=== PATIENT | male | born 1955 | race Caucasian/White ===

== ENCOUNTER 2016-10-16 13:11 | Emergency (ER) | payer BC ==
[2016-10-16] MEDS ORDERED: METHYLPREDNISOLONE PF 125MG/VIAL IM ONE (14:26)
--- NOTE | 2016-10-16 14:31 | Emergency Department Record ---
History of Present Illness - General Chief complaint: Extremity Problem Stated complaint: RIGHT HAND SWELLING BITE Time Seen by Provider: 10/16/16 14:10 Source: Patient Mode of Arrival: Ambulatory Limitations: No limitations - History of Present Illness Initial comments: The patient is here due to R hand swelling and itching. He unfortunately shoved his hand in a work glove at home yesterday and it had a spider nest cacoon in it and it poked him in the web space between his R 4th and 5th fingers dorsally. It was itchy soon after and since the hand has become swollen, mildly erythematous and is still pruritic. Today there is some bruising at the puncture site but the hand is not painful or tender. MD Complaint: Extremity swelling Onset/Timin -: Days(s) Location: Right, Hand History of Same: No Radiation: None Quality: Other Consistency: Constant Improves with: Nothing Worsens with: Nothing Associated Symptoms: Denies other symptoms - Related Data Home Medications Medication Instructions Recorded Confirmed Last Taken Amlodipine Besylate [Norvasc] 10 mg PO DAILY 10/16/16 10/16/16 10/16/16 Atorvastatin Calcium 40 mg PO QHS 10/16/16 10/16/16 10/15/16 Enalapril Maleate [Enalapril 10 mg PO DAILY 10/16/16 10/16/16 10/16/16 Maleate] Previous Rx's Medication Instructions Recorded Prednisone 50 mg PO DAILY #5 tablet 10/16/16 Allergies Allergy/AdvReac Type Severity Reaction Status Date / Time Penicillins Allergy Severe RASH Verified 10/16/16 14:03 Travel Screening - Travel/Exposure Within Last 30 Days Have you traveled within the last 30 days?: No Review of Systems Constitutional: Denies: Chills, Fever Past Medical History - SOCIAL HISTORY Smoking Status: Never smoker Alcohol Use: Occasional Drug Use: None - RESPIRATORY Hx Respiratory Disorders: No - CARDIOVASCULAR Hx Cardio Disorders: Yes Hx Hypertension: Yes Comment:: high cholesterol - NEURO Hx Neuro Disorders: No - GI Hx GI Disorders: No - Hx Genitourinary Disorders: No - ENDOCRINE Hx Endocrine Disorders: No - MUSCULOSKELETAL Hx Musculoskeletal Disorders: No - PSYCH Hx Psych Problems: No - HEMATOLOGY/ONCOLOGY Hx Hematology/Oncology Disorders: Yes Hx Cancer: Yes (skin) Family Medical History Any Significant Family History?: No Physical Exam - General General Appearance: Alert, Oriented x3, Cooperative, No acute distress - Head Head exam: Atraumatic, Normocephalic, Normal inspection - Eye Eye exam: Normal appearance, PERRL - Neck Neck exam: Normal inspection, Full ROM. negative: Tenderness - Respiratory Respiratory exam: Normal lung sounds bilaterally. negative: Respiratory distress - Cardiovascular Cardiovascular Exam: Regular rate, Normal rhythm, Normal heart sounds - GI/Abdominal GI/Abdominal exam: Soft, Normal bowel sounds. negative: Tenderness - Extremities Extremities exam: Full ROM (There is no pain with ROM of the fingers or hand. ) , Normal capillary refill, Other (The hand appears to have a local allergic rxn occuring.). negative: Normal inspection (There is mild edema and erythema to the dorsal R hand but no tenderness or warmth.), Joint swelling, Tenderness Image of Hand: 1 - Bruising and blistering. Course Vital Signs 10/16/16 13:56 Temperature 98.0 F Pulse Rate 66 Respiratory 20 Rate Blood Pressure 151/92 Pulse Ox 97 - Reevaluation(s) Reevaluation #1: The patient is doing well with no changes. He is to ice and elevate his hand today. He is to see his PCP for recheck and to return to the ER if not better. 10/16/16 14:42 Disposition Disposition: Discharge Clinical Impression: Allergic reaction to bee sting Disposition: Home, Self-Care Condition: (1) Good Instructions: General Allergic Reaction (ED) Additional Instructions: Please ice and elevate the hand today. Please take an OTC antihistamine for 3 days and continue the Prednisone tomorrow. Please see your PCP tomorrow for recheck and return to the ER for any persistent symptoms, increased swelling, redness, any pain or fever. Prescriptions: Prednisone 50 mg PO DAILY #5 tablet Forms: Patient Portal Access Time of Disposition: 14:46 Quality - Quality Measures Quality Measures: N/A - Blood Pressure Screening View Details: Yes Blood Pressure Classification: Normal BP Reading Systolic Measurement: 117 Diastolic Measurement: 77 Screening for High Blood Pressure: < Normal BP, F/U Not Required > [G8783] Normal BP Follow-up Interventions: No follow-up required Pre-Hypertensive Follow-up Interventions: Follow-up with rescreen every year.
== END 2016-10-16 14:58 | disposition home or self-care (01) ==
LOC: ER 13:11
DX: T63.441A Toxic effect of venom of bees, accidental (unintentional), initial encounter (principal); M79.89 Other specified soft tissue disorders
CPT/HCPCS: 96372; 99283; J2930

== ENCOUNTER 2018-03-21 20:08 | Emergency (ER) | payer BC ==
--- NOTE | 2018-03-21 20:34 | Emergency Department Record ---
History of Present Illness - General Chief Complaint: Laceration(s) Stated Complaint: LAC LT INDEX Time Seen by Provider: 03/21/18 20:31 Source: Patient Mode of Arrival: Ambulatory Limitations: No limitations - History of Present Illness Initial Commments: 62 yo male presents to ED for evaluation following injury while working with a tablesaw. Patient denies numbness, tingling, or weakness to the finger with flexion or extension. Patient denies other injury on examination, and reports that his bleeding symptoms are well controlled. Patient reports previous hand injuries, has seen Dr. Guy previously on several occasions for repair. Onset/Timin -: Hour(s) Location: Other Extremity Location: Left: Hand Place: Home Context: Accidental Associated Symptoms: None Treatments Prior to Arrival: Bandage Treatment Prior to Arrival Comment:: none - Alisha Coma Scale Eye Response: (4) Open spontaneously Motor Response: (6) Obeys commands Verbal Response: (5) Oriented [place] Total: 15 - Related Data Hx Tetanus Toxoid Vaccination: Yes Year of Tetanus Vaccination: unknown Patient Tetanus UTD (within 5 yrs): No Previous Rx's Medication Instructions Recorded Clindamycin HCl 300 mg PO QID #28 capsule 03/21/18 Allergies Allergy/AdvReac Type Severity Reaction Status Date / Time Penicillins Allergy Severe RASH Verified 03/21/18 20:26 Travel Screening - Travel/Exposure Within Last 30 Days Have you traveled within the last 30 days?: No - Travel/Exposure Within Last Year Have you traveled outside the [place] in the last year?: No - Additonal Travel Details Have you been exposed to anyone with a communicable illness?: No - Travel Symptoms Symptom Screening: None Review of Systems Constitutional: Denies: Chills, Fever, Malaise, Night sweats Eyes: Denies: Eye discharge, Eye pain ENT: Denies: Congestion, Ear pain, Epistaxis Respiratory: Denies: Cough, Dyspnea Cardiovascular: Denies: Chest pain, Dyspnea on exertion Endocrine: Denies: Fatigue, Heat or cold intolerance Gastrointestinal: Denies: Abdominal pain, Nausea, Vomiting Genitourinary: Denies: Incontinence, Retention Musculoskeletal: Denies: Arthralgia, Back pain Skin: Reports: Other (Finger laceration). Denies: Bruising, Change in color Neurological: Denies: Abnormal gait, Confusion, Headache, Seizure Psychiatric: Denies: Anxiety Hematological/Lymphatic: Denies: Anemia, Blood Clots Past Medical History - SOCIAL HISTORY Smoking Status: Never smoker Alcohol Use: Occasional Drug Use: None - RESPIRATORY Hx Respiratory Disorders: No - CARDIOVASCULAR Hx Cardio Disorders: Yes Hx Hypertension: Yes Comment:: high cholesterol - NEURO Hx Neuro Disorders: No - GI Hx GI Disorders: No - Hx Genitourinary Disorders: No - ENDOCRINE Hx Endocrine Disorders: No - MUSCULOSKELETAL Hx Musculoskeletal Disorders: No - PSYCH Hx Psych Problems: No - HEMATOLOGY/ONCOLOGY Hx Hematology/Oncology Disorders: Yes Hx Cancer: Yes (skin) Family Medical History Any Significant Family History?: Yes Hx Heart Disease: Father Physical Exam - General General Appearance: Alert, Oriented x3, Cooperative, Mild distress Limitations: No limitations - Head Head exam: Atraumatic, Normocephalic, Normal inspection Head exam detail: negative: Abrasion, Contusion, Mcintosh's sign, General tenderness, Hematoma, Laceration - Eye Eye exam: Normal appearance. negative: Conjunctival injection, Periorbital swelling, Periorbital tenderness, Scleral icterus - ENT Ear exam: negative: Auricular hematoma, Auricular trauma Nasal Exam: negative: Active bleeding, Discharge, Dried blood, Foreign body Mouth exam: negative: Drooling, Laceration, Muffled voice, Tongue elevation - Neck Neck exam: Normal inspection. negative: Meningismus, Tenderness - Respiratory Respiratory exam: Normal lung sounds bilaterally. negative: Rales, Respiratory distress, Rhonchi, Stridor - Cardiovascular Cardiovascular Exam: Regular rate, Normal rhythm, Normal heart sounds - GI/Abdominal GI/Abdominal exam: Soft. negative: Rebound, Rigid, Tenderness - Rectal Rectal exam: Deferred - exam: Deferred - Extremities Extremities exam: Normal inspection. negative: Pedal edema, Tenderness - Back Back exam: Denies: CVA tenderness (R), CVA tenderness (L) - Neurological Neurological exam: Alert, Normal gait, Oriented X3 - Psychiatric Psychiatric exam: Normal affect, Normal mood - Skin Skin exam: Normal color. negative: Abrasion Type of lesion: negative: abrasion Course Vital Signs 03/21/18 20:11 Temperature 98 F Pulse Rate 88 Respiratory 24 Rate Blood Pressure 134/87 Pulse Ox 96 - Reevaluation(s) Reevaluation #1: 03/21/18 20:46 Left index finger: Comminuted, minimally displaced tuft fracture Case was discussed with Dr. Guy, will place in wet-to-dry dressing, clinamycin, and splint with follow-up in 3-5 days as directed. Patient was updated on all results, appears stable for discharge at this time. Disposition Disposition: Discharge Clinical Impression: Open fracture of tuft of distal phalanx of finger Laceration of index finger Qualifiers: Encounter type: initial encounter Damage to nail status: with damage Foreign body presence: without foreign body Laterality: left Qualified Code(s): S61.311A - Laceration without foreign body of left index finger with damage to nail, initial encounter Disposition: Home, Self-Care Condition: (2) Stable Instructions: Laceration (ED) Additional Instructions: Return to ED if your symptoms worsen or if you have any concerns. Clindamycin as directed. Follow-up with Dr. Guy in 3-5 days as directed. Prescriptions: Clindamycin HCl 300 mg PO QID #28 capsule Referrals: TOYA GUY [MEDICAL DOCTOR] - Forms: Patient Portal Access Time of Disposition: 20:49 Quality - Quality Measures Quality Measures: N/A - Blood Pressure Screening Does Patient Have Any of the Following: No Blood Pressure Classification: Pre-Hypertensive BP Reading Systolic Measurement: 134 Diastolic Measurement: 87 Screening for High Blood Pressure: < Pre-Hypertensive BP, F/U Documented > [ G8950] Pre-Hypertensive Follow-up Interventions: Referral to alternative/primary care provider.
[2018-03-21] MEDS ORDERED: CLINDAMYCIN 150 MG CAP PO ONE (20:49)
[2018-03-21] MEDS ORDERED: Diph,Pert(Acell),Tet Vac 0.5 ML SYR IM ONE (20:52)
--- NOTE | 2018-03-23 12:47 | RADIOLOGY REPORT ---
EXAM: LEFT INDEX FINGER HISTORY: TABLE SAW INJURY, NICKED LEFT INDEX FINGER WHERE FINGERNAIL IS. TECHNIQUE: Three views of the left index finger were obtained. Comparison: No prior left index finger series, but comparison is made with the prior left hand series of 12/01/09. Encounter: Initial. FINDINGS: There is a new comminuted fracture of the tuft of the distal phalanx of the index finger compared with the prior left hand series of 12/01/09. Soft tissue defect in the overlying nail bed consistent with the history of table saw injury and given the mechanism of injury this is presumably an open comminuted fracture of the tuft of the distal phalanx. Overlying soft tissue swelling as well. Particularly on the lateral view there is also an apparent fracture through the dorsal aspect of the base of the distal phalanx of the index finger. There is degenerative arthritis at this location on the prior 12/01/09 exam, but an actual radiolucent fracture line was not present through the dorsal aspect of the base of the distal phalanx of the left index finger on the prior study and therefore is presumably acute today as well although correlation with point tenderness suggested as this does appear to be distant from the location of the table saw injury by history. Some chronic calcification along the dorsal aspect of the middle phalanx of the index finger distally also present previously, but more pronounced and may be due to prior injury. This extends across the dorsal aspect of the DIP joint itself and may have effectively fused the DIP joint. There is a new small metallic linear foreign body in the soft tissues along the dorsal aspect of the finger at the level of the distal shaft of the proximal phalanx. This metallic foreign body measures about 1.9 mm in length and correlation as to the etiology of this suggested. Some deformity of the skin overlying the distal metaphyseal region of the proximal phalanx could be an acute injury as well and was not apparent previously. Clinical correlation as to the full extent of the table saw injury is suggested. Soft tissue swelling over the level of the MCP joints as well. Prominent degenerative arthritis at the first CMC articulation partially seen. Mild degenerative arthritis at the second MCP joint. IMPRESSION: 1. COMMINUTED FRACTURE OF THE TUFT OF THE DISTAL PHALANX OF THE INDEX FINGER, PRESUMABLY AN OPEN FRACTURE WITH OVERLYING SOFT TISSUE DEFECT, CONSISTENT WITH TABLE SAW INJURY. 2. PROMINENT CHRONIC CALCIFICATION ALONG THE DORSAL ASPECT OF THE INDEX FINGER AT THE LEVEL OF THE DIP JOINT AND DISTAL ASPECT OF THE MIDDLE PHALANX. HOWEVER , THERE IS NOW A NEW FRACTURE THROUGH THE DORSAL ASPECT OF THE BASE OF THE DISTAL PHALANX. 3. NEW SHORT LINEAR METALLIC FOREIGN BODY IN THE SOFT TISSUES ALONG THE DORSAL ASPECT OF THE FINGER AT THE LEVEL OF THE DISTAL SHAFT OF THE PROXIMAL PHALANX. APPARENT OVERLYING SOFT TISSUE DEFECT IN THE DORSAL ASPECT OF THE INDEX FINGER JUST DISTAL TO THE LEVEL OF THIS SMALL FOREIGN BODY. 4. SOFT TISSUE SWELLING OVERLYING THE LEVEL OF THE MCP JOINTS WELL. JOB NUMBER: [id number] [facility]
== END 2018-03-21 21:12 | disposition home or self-care (01) ==
LOC: ER 20:08
DX: S62.631B Displaced fracture of distal phalanx of left index finger, initial encounter for open fracture (principal); W31.2XXA Contact with powered woodworking and forming machines, initial encounter; Y92.009 Unspecified place in unspecified non-institutional (private) residence as the place of occurrence of the external cause; I10 Essential (primary) hypertension
CPT/HCPCS: 73140; 90715; 96372; 99283; 99284

== ENCOUNTER 2019-05-30 08:18 | Emergency (ER) | payer BC ==
[2019-05-30] MEDS ORDERED: ASPIRIN 325 MG TABLET PO ONE (08:33)
--- NOTE | 2019-05-30 08:37 | Emergency Department Record ---
History of Present Illness - General Chief Complaint: Chest Pain Stated Complaint: CHEST PAIN Time Seen by Provider: 05/30/19 08:29 Source: Patient Mode of Arrival: Ambulatory Limitations: No limitations - History of Present Illness Initial Comments: The patient is here due to L sided chest pressure over the last 2 weeks. The symptoms come on at rest and last 20-30 minutes. Today he has had 2 episodes of the pain and it was quite severe at 3am today. There is no SOB, VERONIKA, sweating, or nausea with the pain but he is having some L hand tingling today. The patient has no cardiac hx but does have risk factors of obesity, HTN, and DM II. MD Complaint: Chest pain Onset/Timin -: Week(s) Onset: During rest Pain Location: Substernal, Left chest Quality: Tightness, Other - Related Data Home Medications Medication Instructions Recorded Confirmed Last Taken Metformin HCl [Metformin HCl ER] 500 mg PO DAILY 05/30/19 05/30/19 05/30/19 Allergies Allergy/AdvReac Type Severity Reaction Status Date / Time Penicillins Allergy Severe RASH Verified 03/21/18 20:26 Travel/Exposure Screening - Travel/Exposure Within Last 30 Days Have you traveled within the last 30 days?: No - Travel/Exposure Within Last Year Have you traveled outside the [place] in the last year?: No - Additonal Travel/Exposure Details Have you been exposed to anyone with a communicable illness?: No - Travel Symptoms Symptom Screening: None Review of Systems Constitutional: Denies: Chills, Fever Eyes: Denies: Eye discharge ENT: Denies: Congestion Respiratory: Denies: Cough, Dyspnea Cardiovascular: Reports: Chest pain. Denies: Dyspnea on exertion Endocrine: Denies: Fatigue Gastrointestinal: Denies: Nausea Genitourinary: Denies: Dysuria Musculoskeletal: Denies: Arthralgia Skin: Denies: Bruising Past Medical History - SOCIAL HISTORY Smoking Status: Never smoker Alcohol Use: Heavy Alcohol Use Comment: 3-5 beers daily Drug Use: None - RESPIRATORY Hx Respiratory Disorders: No - CARDIOVASCULAR Hx Cardio Disorders: Yes Hx Hypertension: Yes Comment:: high cholesterol - NEURO Hx Neuro Disorders: No - GI Hx GI Disorders: No - Hx Genitourinary Disorders: No - ENDOCRINE Hx Endocrine Disorders: No - MUSCULOSKELETAL Hx Musculoskeletal Disorders: No - PSYCH Hx Psych Problems: No - HEMATOLOGY/ONCOLOGY Hx Hematology/Oncology Disorders: Yes Hx Cancer: Yes (skin) Family Medical History Any Significant Family History?: No Hx Heart Disease: Father Physical Exam - General General Appearance: Alert, Oriented x3, Cooperative, No acute distress - Head Head exam: Atraumatic, Normocephalic, Normal inspection - Eye Eye exam: Normal appearance, PERRL - ENT Throat exam: Normal inspection. negative: Tonsillar erythema, Tonsillar exudate - Neck Neck exam: Normal inspection, Full ROM. negative: Tenderness - Respiratory Respiratory exam: Normal lung sounds bilaterally. negative: Respiratory distress - Cardiovascular Cardiovascular Exam: Regular rate, Normal rhythm, Normal heart sounds - GI/Abdominal GI/Abdominal exam: Soft, Normal bowel sounds. negative: Tenderness - Extremities Extremities exam: Normal inspection, Full ROM, Normal capillary refill. negative: Tenderness - Back Back exam: Denies: Normal inspection - Neurological Neurological exam: Alert, Normal gait. negative: Abnormal gait - Psychiatric Psychiatric exam: negative: Depressed Course Vital Signs 05/30/19 08:22 Temperature 98.0 F Pulse Rate 83 Respiratory 16 Rate Blood Pressure 163/103 Pulse Ox 97 - Reevaluation(s) Reevaluation #1: The patient is doing very well at this time. He denies any CP or SOB and is resting comfortably. I did discuss the case with Dr. Cates (Cardiology) and he would like the patient transferred [place] [facility] [place]. I also did discuss the case with Dr. Pandey who is on for Int Med at [facility] and he did accept the patient in transfer. Since the patient is pain free at this time we will hold on Heparin. 05/30/19 09:27 Reevaluation #2: We are still waiting on a bed for the patient and he remains pain free with no complaints. 05/30/19 11:01 Medical Decision Making - Data Complexity MDM Data: Labs Ordered and/or Reviewed, X-Ray Ordered and/or Reviewed, EKG Ordered and/or Reviewed - Lab Data Result diagrams: 05/30/19 08:39 05/30/19 08:39 - EKG Data -: EKG Interpreted by Me EKG: Abnormal EKG (NSR at 81, borderline ST depression anterior lat leads.) - Radiology Data Radiology results: Report reviewed (CXR: Neg) Disposition Disposition: Transfer Clinical Impression: Cardiac ischemia Disposition: Acute Care Hospital Transfer Transfer To: [facility] Reason For Transfer: Cardiology Accepting Physician: Katherin Time Discussed w/Accepting Physician: 09:32 Condition: (2) Stable Instructions: Chest Pain (ED) Forms: Patient Portal Access Time of Disposition: 09:31 Quality - Quality Measures Quality Measures: N/A - Blood Pressure Screening View Details: Yes Does Patient Have Any of the Following: Active Dx of HTN Blood Pressure Classification: Hypertensive Reading Systolic Measurement: 163 Diastolic Measurement: 103 Screening for High Blood Pressure: Patient Exclusion, Hx of HTN [G9744]
[2019-05-30 08:47] LABS: ABSOLUTE NEUTROPHIL COUNT 2.14; BASO % 0.9 % (0-6); EOS % 4.9 % (0-6); GRAN % 47.5 % (47-80); HEMATOCRIT 45.8 % (42.0-52.0); HEMOGLOBIN 15.1 gm/dl (14.0-18.0); LYMPH % 39.1 % (16-45); MEAN CELL VOLUME 95.2 fl (81-97); MEAN CORPUSCULAR HEMOGLOBIN 31.4 pg (27-33); MEAN PLATELET VOLUME 9.5 fl (7.4-10.4); MONO % 7.6 % (0-9); PLATELET COUNT 199 K/uL (130-400); RED BLOOD COUNT 4.81 M/uL (4.40-5.70); WHITE BLOOD COUNT W/O DIFF 4.5 K/uL (4.2-12.2)
[2019-05-30 08:58] LABS: BLOOD UREA NITROGEN 13 mg/dL (8-23); EST GLOMERULAR FILTRATION RATE > 60 mL/min
[2019-05-30 08:59] LABS: PARTIAL THROMBOPLASTIN TIME 24.2 SECONDS (24.5-39.1); TOTAL PROTEIN 6.4 g/dL (6.6-8.7)
[2019-05-30 09:01] LABS: GLUCOSE,RANDOM 143 mg/dL (74-109)
[2019-05-30 09:03] LABS: ALB/GLOB RATIO 1.7 (1.1-1.8); ALKALINE PHOSPHATASE 69 U/L (40-129); ALT/SGPT 34 U/L (<41); AST/SGOT 18 U/L (10.0-50.0)
--- NOTE | 2019-05-30 09:24 | RADIOLOGY REPORT ---
EXAMINATION: Single View Chest EXAM DATE: 05/30/2019 9:05 AM TECHNIQUE: Single view chest INDICATION: CP COMPARISON: None. ENCOUNTER: Not applicable FINDINGS: The heart, mediastinum, and pulmonary vasculature are normal. Tortuosity of the aorta. No lung consol idation or pleural effusions are present. No pneumothorax is present. IMPRESSION: No acute cardiopulmonary disease is present. Dictated by: Marilu Thompson MD on 05/30/2019 9:21 AM. .
== END 2019-05-30 15:18 | disposition short-term general hospital (02) ==
LOC: ER 08:18
DX: I25.9 Chronic ischemic heart disease, unspecified (principal); R20.0 Anesthesia of skin; I10 Essential (primary) hypertension; E11.9 Type 2 diabetes mellitus without complications
CPT/HCPCS: 71045; 80053; 84484; 85025; 85610; 85730; 93005; 93010; 99285